=== PATIENT | female | born 1945 | race Caucasian/White ===

== ENCOUNTER 2017-01-28 08:02 | Outpatient (CLI) | payer MEDICARE, OTHER ==
--- NOTE | 2017-01-30 12:51 | DEXA Report ---
DEXA SCAN: 01/28/2017 TECHNIQUE: Dual energy x-ray absorptiometry (DXA) was performed on a Real Time Content system. Regions measured are the AP spine, femoral neck, and, if needed, forearm. COMPARISON: None. In accordance with the International Society for Clinical Densitometry (ISCD) guidelines, data from previous exams may be reanalyzed using current recommendations and techniques. This is done to allow a more accurate basis for comparison with the current study. FINDINGS Data for the lumbar spine is as follows: REGION BMD (g/cm/cm) T-SCORE Z-SCORE L1 0.927 -1.7 0.2 L2 1.007 -1.6 0.3 L3 1.164 -0.3 1.6 L4 1.199 0.0 1.9 TOTAL 1.080 -0.8 1.0 NOTE: All evaluable vertebrae are used for classification. Data for the hip is as follows: REGION BMD (g/cm/cm) T-SCORE Z-SCORE Neck 0.798 -1.7 0.2 TOTAL 0.841 -1.3 0.4 NOTE: The femoral neck or total proximal femur, whichever is lowest, is used for classification. IMPRESSION: THE WHO CLASSIFICATION BASED ON THE INTERNATIONAL REFERENCE STANDARD IS OSTEOPENIA. FRACTURE RISK IS INCREASED. RECOMMENDATION: Patients with diagnosis of osteoporosis or osteopenia should have regular bone mineral density assessment. For those eligible for Medicare, routine testing is allowed once every 2 years. Testing frequency can be increased for patients who have rapidly progressing disease or for those who are receiving medical therapy to restore bone mass. COMMENT: World Health Organization (WHO) definitions for osteoporosis and osteopenia: NORMAL BMD: T-score at -1.0 or higher, fracture risk is low. OSTEOPENIA BMD: T-score between -1.0 and -2.5, fracture risk is increased. OSTEOPOROSIS BMD: T-score at -2.5 or lower, fracture risk high. National Osteoporosis Foundation recommends: 1. Obtain adequate dietary calcium (at least 1200 mg per day) and vitamin D (400 -800 international units per day). 2. Participate, as appropriate, in regular weightbearing and muscle- strengthening exercise. 3. Avoid tobacco use and reduce alcohol and caffeine intake. 4. For more detailed information see the website at www.NOF.org. MTDD
== END 2017-01-28 08:03 | disposition home or self-care (01) ==
LOC: DI 08:02
PROVIDERS: ATTEND Family Medicine
DX: M85.88 Other specified disorders of bone density and structure, other site (principal); Z79.83 Long term (current) use of bisphosphonates
CPT/HCPCS: 77080

== ENCOUNTER 2017-01-29 08:29 | Outpatient (CLI) | payer MEDICARE, OTHER ==
--- NOTE | 2017-01-31 09:45 | Mammography Report ---
DIGITAL BILATERAL SCREENING MAMMOGRAM: 01/29/2017 COMPARISON STUDY: Mammogram 01/04/2016. INDICATION: Screening mammography. TECHNIQUE: Routine CC and MLO projections were obtained of the breasts. FINDINGS: Parenchymal tissue within both breasts is heterogeneously dense, which may lower the sensi tivity of mammography; however, there are no dominant masses, suspicious microcalcifications, or seco ndary signs of malignancy. In comparison to the previous studies, there are no significant changes. ASSESSMENT: NO MAMMOGRAPHIC EVIDENCE OF MALIGNANCY. NO SIGNIFICANT INTERVAL CHANGES. RECOMMENDATION: Screening mammography is recommended annually. BIRADS category 1 - negative. STANDARD QUALIFYING STATEMENTS 1. This examination was reviewed with the aid of Computed-Aided Detection (CAD). 2. A negative or benign imaging report should not delay biopsy if clinically suspicious findings are present. Consider surgical consultation if warranted. More than 5% of cancers are not identified by i maging. 3. Dense breasts may obscure an underlying neoplasm. :9 JOB #: [id number] EXT JOB #:[id number]
== END 2017-01-29 08:30 | disposition home or self-care (01) ==
LOC: DI.S 08:29
PROVIDERS: ATTEND Family Medicine
DX: Z12.31 Encounter for screening mammogram for malignant neoplasm of breast (principal)
CPT/HCPCS: 77067

== ENCOUNTER 2017-10-01 17:42 | Outpatient (CLI) | payer MEDICARE, OTHER ==
--- NOTE | 2017-10-02 08:27 | XRAY Report ---
Procedure Date: 10/01/2017 Accession Number: [id number] / [id number] Procedure: XR - Forearm RT CPT Code: FULL RESULT: EXAM: RIGHT FOREARM RADIOGRAPHY EXAM DATE: 10/01/2017 05:59 PM. CLINICAL HISTORY: Right RADIAL CONTUSION VX FX. TREE LIMB STRUCK ARM. Distal right forearm laceration/contusion. Pain. COMPARISON: None. TECHNIQUE: 2 views. FINDINGS: Bones: No acute fracture or bony lesion. No bony erosions. Joints: Normal alignment. No elbow effusion. Mild degenerative changes of the right wrist. No dislocation. Soft Tissues: No radiopaque foreign bodies. Soft tissue edema. IMPRESSION: 1. No acute osseous abnormalities. RADIA
== END 2017-10-01 17:43 | disposition home or self-care (01) ==
LOC: DI 17:42
PROVIDERS: ATTEND Family Medicine
DX: S50.12XA Contusion of left forearm, initial encounter (principal)

== ENCOUNTER 2019-01-23 09:51 | Outpatient (CLI) | payer MEDICARE, OTHER ==
--- NOTE | 2019-01-23 10:44 | Mammography Report ---
Reason: ROUTINE MAMMO Procedure Date: 01/23/2019 Accession Number: [id number] / [id number] Procedure: WINTER - Screening Mammo w/Andrew CPT Code: FULL RESULT: EXAM: Screening Mammo w/Andrew DATE: 01/23/2019 10:24 AM CLINICAL HISTORY: Screening encounter. TECHNIQUE: (B) - Bilateral CC and MLO views were obtained. Left laterally exaggerated CC views obtained. COMPARISON: 01/29/2017 through 01/11/2010. PARENCHYMAL PATTERN: (A) - The breast(s) demonstrate(s) scattered fibroglandular densities. FINDINGS: A 4 mm right breast upper outer quadrant axillary tail isodense well-circumscribed nodule demonstrates long-term stability, typically benign. There are no suspicious masses, calcifications, or areas of distortion. IMPRESSION: Benign findings. BI-RADS category 2. RECOMMENDATION: (ANNUAL) - Recommend routine annual screening mammography. BI-RADS CATEGORY: (2) - Benign Findings. STANDARD QUALIFYING STATEMENTS: 1. This examination was not reviewed with the aid of Computer-Aided Detection (CAD). 2. A negative or benign imaging report should not preclude biopsy if clinically suspicious findings are present. 3. Dense breasts may obscure an underlying neoplasm. 4. This examination was reviewed with the aid of 3D breast imaging (tomosynthesis).
== END 2019-01-23 09:52 | disposition home or self-care (01) ==
LOC: DI 09:51
DX: Z12.31 Encounter for screening mammogram for malignant neoplasm of breast (principal)
CPT/HCPCS: 77063; 77067

== ENCOUNTER 2019-09-08 11:49 | Outpatient (CLI) | payer MEDICARE, OTHER ==
--- NOTE | 2019-09-08 17:45 | XRAY Report ---
Reason: PAIN IN LEFT FOOT Procedure Date: 09/08/2019 Accession Number: [id number] / [id number] Procedure: XR - Foot 3 View LT CPT Code: Final Report FULL RESULT: PROCEDURE: Foot 3 View LT INDICATIONS: Pain in the left foot, initial injury 4 weeks ago. Possible fracture of the left second digit. TECHNIQUE: 3 views of the foot were acquired. COMPARISON: None FINDINGS: Bones: No dislocations. No suspicious bony lesions. There is a diagonal fracture at the proximal metaphysis of the second proximal phalanx, only slightly displaced and likely subacute, consistent with the clinical history. No additional area of trauma is found. Soft tissues: No tibiotalar joint effusion. Achilles tendon appears normal. IMPRESSION: Minimally displaced diagonal fracture at the base of the second proximal phalanx. No additional injury. Early healing, given the blurring of the fracture margins. Reviewed by: Steve Vega MD on 09/08/2019 1:09 PM PDT Approved by: Steve Vega MD on 09/08/2019 1:09 PM PDT Station ID: [id number]
== END 2019-09-08 11:50 | disposition home or self-care (01) ==
LOC: DI 11:49
PROVIDERS: ATTEND Physician Assistant
DX: S92.512A Displaced fracture of proximal phalanx of left lesser toe(s), initial encounter for closed fracture (principal)

== ENCOUNTER 2019-10-15 08:02 | Day surgery (SDC) | payer MEDICARE, OTHER ==
[2019-10-15] MEDS ORDERED: ONDANSETRON 4 MG/2 ML VIAL IVP STA ×2 (08:17→08:32)
[2019-10-15] MEDS ORDERED: SODIUM CHLORIDE 0.9% 1,000 ML IV STA (08:17)
[2019-10-15] MEDS ORDERED: KETOROLAC 30 MG/ML VIAL IVP STA (08:32)
[2019-10-15 08:38] LABS: BASOPHILS # (AUTO) 0.1 10^3/uL (0.0-0.1); BASOPHILS % (AUTO) 0.4 %; EOSINOPHILS % (AUTO) 0.2 %; LYMPHOCYTES # (AUTO) 0.6 10^3/uL (1.5-3.5); LYMPHOCYTES % (AUTO) 3.7 %; MEAN CORPUSCULAR HEMOGLOBIN 32.7 pg (27.0-31.0); MEAN CORPUSCULAR HGB CONC 33.8 g/dL (32.0-36.0); MEAN CORPUSCULAR VOLUME 96.7 fL (81.0-99.0); MEAN PLATELET VOLUME 10.3 fL (7.9-10.8); MONOCYTES # (AUTO) 1.1 10^3/uL (0.0-1.0); MONOCYTES % (AUTO) 6.6 %; NEUTROPHILS # (AUTO) 14.5 10^3/uL (1.5-6.6); NEUTROPHILS % (AUTO) 88.6 %; PLT - PLATELET COUNT 220 10^3/uL (130-450); RED BLOOD COUNT 3.98 10^6/uL (4.20-5.40); RED CELL DISTRIBUTION WIDTH 12.2 % (12.0-15.0); WHITE BLOOD COUNT 16.3 x10^3/uL (4.8-10.8)
--- NOTE | 2019-10-15 08:39 | ED Physician Documentation ---
History of Present Illness - Stated complaint Stated Complaint: ABD PX, N/V - Chief complaint Chief Complaint: Abd Pain - History obtained from History obtained from: Patient - Additonal information Additional information: Patient comes emergency department complaining of abdominal pain mainly on the right side, and nausea that began 3 days ago. Patient states that she was feeling fine until they ate some crabs at their neighbors had caught the night before. Patient states that 2 or 3 hours later, she began to have a severe shooting, cramping pain on the right side of her abdomen and began to feel severely nauseated. Patient states she vomited everything that she had eaten, and that the nausea continued through the night. Patient has been nauseated every day, and has had intermittent vomiting. She states she had diarrhea at first but that this is resolved. Patient states she has tried to eat a small bowl of Cheerios with banana each morning except this morning. She states that this generally stays down, but that she has dry heaves later. Patient did also have a small piece of chicken and a little sweet potato last night. She states this stayed down but she had dry heaves later in the night. Patient states she thought she was doing a little better yesterday but now she is doing worse again. Patient complains of a sharp, stabbing pain in her right upper and lower quadrants, as well as her epigastric area. She states she has had a full hysterectomy but does not otherwise have an abdominal surgical history. She still has her appendix and gallbladder. Patient denies any fevers or chills. No dysuria. No blood in her urine. No blood in her stool. No other complaints at this time. Patient states she is otherwise healthy. Review of Systems Ten Systems: 10 systems reviewed and negative Constitutional: reports: Reviewed and negative Eyes: reports: Reviewed and negative Ears: reports: Reviewed and negative Nose: reports: Reviewed and negative Throat: reports: Reviewed and negative Cardiac: reports: Reviewed and negative Respiratory: reports: Reviewed and negative GI: reports: Abdominal Pain, Nausea, Vomiting : reports: Reviewed and negative Skin: reports: Reviewed and negative Musculoskeletal: reports: Reviewed and negative Neurologic: reports: Reviewed and negative Psychiatric: reports: Reviewed and negative Endocrine: reports: Reviewed and negative Immunocompromised: reports: Reviewed and negative PD PAST MEDICAL HISTORY - Past Medical History Cardiovascular: None Respiratory: None Endocrine/Autoimmune: None GI: None : None HEENT: None Psych: None Musculoskeletal: None Derm: None - Past Surgical History 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 - Present Medications Home Medications: Ambulatory Orders Medication Instructions Recorded Confirmed Ondansetron Odt [Zofran Odt] 4 mg TL Q6H PRN #10 tablet 10/15/19 oxyCODONE [Roxicodone] 5 mg PO Q4-6H PRN #20 tablet 10/15/19 - Allergies Allergies/Adverse Reactions: Allergies Allergy/AdvReac Type Severity Reaction Status Date / Time codeine Allergy Intermediate Nausea Verified 10/15/19 08:15 Penicillins Allergy Mild Unknown Verified 10/15/19 08:15 PD ED PE NORMAL - Vitals Vital signs reviewed: Yes - General General: Alert and oriented X 3, No acute distress - HEENT HEENT: PERRL - Neck Neck: Supple, no meningeal sign - Cardiac Cardiac: RRR, No murmur - Respiratory Respiratory: Clear bilaterally - Abdomen Abdomen: Soft, Non distended, Other (Patient has moderate tenderness with voluntary guarding over the right side of her abdomen. Moderate tenderness in the epigastric region, as well.) - Derm Derm: Warm and dry - Extremities Extremities: No deformity - Neuro Neuro: Alert and oriented X 3 - Psych Psych: Normal mood, Normal affect Results - Vitals Vitals: Vital Signs - 24 hr 10/15/19 10/15/19 10/15/19 12:00 14:21 14:25 Temperature 36.8 C 36.8 C Heart Rate 71 87 86 Respiratory 16 15 15 Rate Blood Pressure 132/61 H 155/74 H 149/66 H O2 Saturation 98 100 100 10/15/19 10/15/19 10/15/19 14:30 14:35 14:40 Temperature 36.6 C 36.6 C 36.6 C Heart Rate 85 84 82 Respiratory 15 15 19 Rate Blood Pressure 140/76 H 139/65 H 146/75 H O2 Saturation 100 99 100 10/15/19 10/15/19 10/15/19 14:45 14:50 14:55 Temperature 36.6 C 37 C Heart Rate 79 73 72 Respiratory 13 15 16 Rate Blood Pressure 152/78 H 140/70 H 152/74 H O2 Saturation 95 100 98 10/15/19 10/15/19 10/15/19 15:00 15:05 15:15 Temperature 36.8 C 36.1 C L Heart Rate 71 78 75 Respiratory 18 16 15 Rate Blood Pressure 147/69 H 115/51 L 130/59 L O2 Saturation 96 97 94 10/15/19 10/15/19 15:30 15:45 Temperature 36.1 C L Heart Rate 73 76 Respiratory 16 16 Rate Blood Pressure 142/60 H 105/45 L O2 Saturation 99 99 Oxygen O2 Source Room air - Labs Labs: Laboratory Tests 10/15/19 10/15/19 10/15/19 08:25 08:25 08:25 WBC 16.3 H RBC 3.98 L Hgb 13.0 Hct 38.5 MCV 96.7 MCH 32.7 H MCHC 33.8 RDW 12.2 Plt Count 220 MPV 10.3 Neut # (Auto) 14.5 H Lymph # (Auto) 0.6 L [place] # (Auto) 1.1 H Eos # (Auto) 0.0 Baso # (Auto) 0.1 Absolute Nucleated RBC 0.00 Nucleated RBC % 0.0 PT 13.2 H INR 1.2 Sodium 134 L Potassium 3.7 Chloride 97 L Carbon Dioxide 23 Anion Gap 14.0 H BUN 20 Creatinine 0.8 Estimated GFR (MDRD) 70 L Glucose 119 H Calcium 9.3 Total Bilirubin 1.3 H AST 16 ALT 13 Alkaline Phosphatase 44 Total Protein 8.4 H Albumin 4.4 Globulin 4.0 Albumin/Globulin Ratio 1.1 Lipase 32 Urine Color Urine Clarity Urine pH Ur Specific [place] Urine Protein Urine Glucose (UA) Urine Ketones Urine Occult Blood Urine Nitrite Urine Bilirubin Urine Urobilinogen Ur Leukocyte Esterase Urine RBC Urine WBC Ur Squamous Epith Cells Urine Bacteria Urine Mucus Ur Microscopic Review Urine Culture Comments 10/15/19 10:30 WBC RBC Hgb Hct MCV MCH MCHC RDW Plt Count MPV Neut # (Auto) Lymph # (Auto) [place] # (Auto) Eos # (Auto) Baso # (Auto) Absolute Nucleated RBC Nucleated RBC % PT INR Sodium Potassium Chloride Carbon Dioxide Anion Gap BUN Creatinine Estimated GFR (MDRD) Glucose Calcium Total Bilirubin AST ALT Alkaline Phosphatase Total Protein Albumin Globulin Albumin/Globulin Ratio Lipase Urine Color YELLOW Urine Clarity SL. CLOUDY Urine pH 5.5 Ur Specific [place] 1.025 Urine Protein 30 H Urine Glucose (UA) NEGATIVE Urine Ketones >=80 H Urine Occult Blood SMALL H Urine Nitrite NEGATIVE Urine Bilirubin NEGATIVE Urine Urobilinogen 0.2 (NORMAL) Ur Leukocyte Esterase NEGATIVE Urine RBC 0-5 Urine WBC 0-3 Ur Squamous Epith Cells FEW Squamous Urine Bacteria Few Urine Mucus Marked Strands Ur Microscopic Review INDICATED Urine Culture Comments NOT INDICATED - Rads (name of study) CT abd/pelvis Radiology: Final report received, EMP read indepedently, See rad report (acute cholecystitis, with stones in fundus of GB) PD MEDICAL DECISION MAKING - ED course Complexity details: reviewed old records, reviewed results, re-evaluated p atient, considered differential, d/w patient ED course: Patient was treated symptomatically with IV fluids, Zofran, and Toradol, and worked up with labs, urinalysis, and ultimately, CT of the abdomen and pelvis. This did show acute cholecystitis. I discussed the case with Dr. Kerns, who agreed to admit to OR. Pt was given Flagyl and Cipro, as she is PCN allergic. Her pain was doing much better after Toradol. Pt and were informed of the plan, and were agreeable. Departure - Departure Disposition: [facility] DC/[facility] Clinical Impression: Acute cholecystitis Condition: Serious Discharge Date/Time: 10/15/19 12:50
[2019-10-15 08:50] LABS: ALBUMIN 4.4 g/dL (3.2-5.5); ALBUMIN/GLOBULIN RATIO 1.1 (1.0-2.2); BILIRUBIN,TOTAL 1.3 mg/dL (0.2-1.0); CALCIUM 9.3 mg/dL (8.5-10.3); CREATININE 0.8 mg/dL (0.4-1.0); INR 1.2 (0.8-1.2); PT - PROTHROMBIN TIME 13.2 secs (9.9-12.6); TOTAL PROTEIN 8.4 g/dL (6.7-8.2)
[2019-10-15] MEDS ORDERED: IOVERSOL 320 100 ML VIAL IVP ONE (10:14)
[2019-10-15 10:41] LABS: GLUCOSE, URINE (UA) NEGATIVE (NEGATIVE); KETONES,URINE (UA) >=80 mg/dL (NEGATIVE); LEUKOCYTE ESTERASE, URINE NEGATIVE (NEGATIVE); NITRITE,URINE NEGATIVE (NEGATIVE); OCCULT BLOOD,URINE SMALL (NEGATIVE); PH,URINE 5.5 PH (5.0-7.5); PROTEIN,URINE 30 mg/dL (NEGATIVE); UROBILINOGEN,URINE 0.2 (NORMAL) E.U./dL (NORMAL)
[2019-10-15 10:48] LABS: BILIRUBIN,URINE NEGATIVE (NEGATIVE); CLARITY,URINE SL. CLOUDY (CLEAR); ICTOTEST,URINE NEGATIVE
--- NOTE | 2019-10-15 10:51 | CT Report ---
PROCEDURE: Abdomen/Pelvis W INDICATIONS: RLQ abd pain CONTRAST: IV CONTRAST: Optiray 320 ml: 100 PO CONTRAST: *NO PO CONTRAST TECHNIQUE: After the administration of oral and intravenous contrast, 5 mm thick sections acquired from the diap hragms to the symphysis. 5 mm thick coronal and sagittal reformats were acquired. For radiation dos e reduction, the following was used: automated exposure control, adjustment of mA and/or kV accordin g to patient size. COMPARISON: None. FINDINGS: Image quality: Excellent. ABDOMEN: Lung bases: There is mild dependent atelectasis bilaterally. Heart size is borderline enlarged. Solid organs: There is periportal edema demonstrated in the liver. A small nonspecific hypodense foc us is noted in the left hepatic lobe which is too small to characterize but likely represents a cyst. The gallbladder is markedly distended with gallbladder wall thickening and associated pericholecysti c fluid and fat stranding. A few small clustered calcified gallstones are demonstrated in the fundus. No discrete calcified gallstone demonstrated in the gallbladder neck. No biliary ductal dilatation o r discrete calcified common duct stone. No pancreatic duct dilatation or peripancreatic fat stranding . No discrete pancreatic mass visualized. No adrenal nodules. The spleen is normal in size. Kidneys demonstrate no hydronephrosis. Peritoneum and bowel: Bowel loops demonstrate normal wall thickness and caliber. No evidence of albino endicitis. Colonic diverticulosis is present without acute diverticulitis. There is a small amount of free fluid in the subhepatic space. No intraperitoneal free air. Nodes and vessels: No retroperitoneal or mesenteric adenopathy by size criteria. Aorta and inferior vena cava are normal in size. Miscellaneous: No ventral hernias. PELVIS: Genitourinary: Bladder wall thickness is normal. Miscellaneous: No inguinal hernias or adenopathy. Bones: No suspicious bony lesions. No vertebral body compression fractures. IMPRESSION: 1. Marked distention of the gallbladder with wall thickening, pericholecystic fluid and fat stranding , and small calcified gallstones. The findings likely represent acute cholecystitis. Further evaluati on may be obtained with ultrasound if clinically indicated. 2. Periportal edema in the liver is nonspecific but likely reactive. 3. No biliary ductal dilatation or calcified common duct stones. 4. No evidence of appendicitis. Findings discussed with Dr. Martinez on 10/15/2019 at 10:48 AM. Reviewed by: Grady De La Garza MD on 10/15/2019 10:49 AM PDT Approved by: Grady De La Garza MD on 10/15/2019 10:49 AM PDT Station ID: [id number]
[2019-10-15 10:56] LABS: RBC,URINE 0-5 /HPF (0-5); SQUAMOUS EPITHELIAL CELL,UR FEW Squamous (<= Few)
[2019-10-15] MEDS ORDERED: metroNIDAZOLE 500 MG/100 ML 500 MG/100 ML BAG IV ONE (10:56)
[2019-10-15 10:57] LABS: BACTERIA,URINE Few /HPF (None Seen); MUCUS,URINE Marked Strands
[2019-10-15] MEDS ORDERED: CIPROFLOXACIN 400 MG/200 ML 400 MG/200 ML BAG IV STA (10:57)
[2019-10-15] MEDS ORDERED: LIDOCAINE 1%-EPI 1:100000 20 ML MDV SUBQ ONE (12:08)
[2019-10-15] MEDS ORDERED: BUPIVACAINE 0.5% PF 30 ML VIAL SUBQ ONE (12:09)
--- NOTE | 2019-10-15 12:21 | HISTORY & PHYSICAL EXAMINATION ---
HPI - Admitted From Admitted from: ED - History Obtained From History obtained from: Patient, Family Exam limitations: No limitations - History of Present Illness Severity at the worst: reports: Severe Pain Quality: reports: Sharp, Aching Context-Pain started w/: reports: Eating Timing: reports: Abrupt onset Duration: reports: Days: (3) Improved with: reports: Nothing Worsened by: reports: Exertion, Eating, Movement Associated symptoms: reports: Nausea HPI Comment/Other: Acute onset of severe RUQ pain associated with nausea and vomiting 3 days ago. Has been "miserable" and unable to eat since that time. Never had a similar episode. Very active and walks daily. No fever at home. A couple of episodes of diarrhea that have since resolved. 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 denies: Fever, Chills, Weakness - Eyes Eyes: denies: Irritation - Ears, Nose & Throat Ears, Nose & Throat: denies: Tinnitus, Vertigo - Cardiovascular Cariovascular: denies: Irregular heart rate, Palpitations, Chest pain, Edema, Lightheadedness - Respiratory Respiratory: denies: Cough, Sputum production - Gastrointestinal Gastrointestinal: reports: Abdominal pain, Diarrhea, Nausea, Vomiting - Genitourinary Genitourinary: denies: Dysuria, Frequency, Urgency - Musculoskeletal Musculoskeletal: denies: Muscle pain, Back pain - Integumentary Integumentary: denies: Rash, Pruritis - Neurological Neurological: denies: Focal weakness - Hematologic/Lymphatic Hematologic/Lymphatic: denies: Anemia, Bruising - All Other Systems All Other Systems: reports: Reviewed and negative Exam - Vital Signs Reviewed Vital Signs: Yes Vital Signs: Vital Signs x48h Temp Pulse Resp BP Pulse Ox 10/15/19 12:00 71 16 132/61 H 98 10/15/19 10:00 76 16 134/69 H 97 10/15/19 08:11 36.7 C 65 20 147/66 H 99 - Physical Exam General Appearance: positive: Alert, Mild distress Eyes Bilateral: positive: Normal inspection, PERRL, EOMI ENT: positive: ENT inspection nml, Pharynx nml Neck: positive: Nml inspection, Trachea midline Respiratory: positive: Chest non-tender, No respiratory distress, Breath sounds nml Cardiovascular: positive: Regular rate & rhythm, No murmur Peripheral Pulses: positive: 1+ Abdomen: positive: Nml bowel sounds, Tenderness, Guarding Skin: positive: Color nml Extremities: positive: Non-tender Neurologic/Psychiatric: positive: Oriented x3 Results - Lab Results Fish Bones: 10/15/19 08:25 10/15/19 08:25 Other Lab Results: Lab Results x24hrs 10/15/19 10/15/19 10/15/19 Range/Units 10:30 08:25 08:25 WBC (4.8-10.8) x10^3/uL RBC (4.20-5.40) 10^6/uL Hgb (12.0-16.0) g/dL Hct (37.0-47.0) % MCV (81.0-99.0) fL MCH (27.0-31.0) pg MCHC (32.0-36.0) g/dL RDW (12.0-15.0) % Plt Count (130-450) 10^3/uL MPV (7.9-10.8) fL Neut # (Auto) (1.5-6.6) 10^3/uL Lymph # (Auto) (1.5-3.5) 10^3/uL [place] # (Auto) (0.0-1.0) 10^3/uL Eos # (Auto) (0.0-0.7) 10^3/uL Baso # (Auto) (0.0-0.1) 10^3/uL Absolute Nucleated RBC x10^3/uL Nucleated RBC % /100WBC PT 13.2 H (9.9-12.6) secs INR 1.2 (0.8-1.2) Sodium 134 L (135-145) mmol/L Potassium 3.7 (3.5-5.0) mmol/L Chloride 97 L (101-111) mmol/L Carbon Dioxide 23 (21-32) mmol/L Anion Gap 14.0 H (6-13) BUN 20 (6-20) mg/dL Creatinine 0.8 (0.4-1.0) mg/dL Estimated GFR (MDRD) 70 L (>89) Glucose 119 H (70-100) mg/dL Calcium 9.3 (8.5-10.3) mg/dL Total Bilirubin 1.3 H (0.2-1.0) mg/dL AST 16 (10-42) IU/L ALT 13 (10-60) IU/L Alkaline Phosphatase 44 (42-121) IU/L Total Protein 8.4 H (6.7-8.2) g/dL Albumin 4.4 (3.2-5.5) g/dL Globulin 4.0 (2.1-4.2) g/dL Albumin/Globulin Ratio 1.1 (1.0-2.2) Lipase 32 (22-51) U/L Urine Color YELLOW Urine Clarity SL. CLOUDY (CLEAR) Urine pH 5.5 (5.0-7.5) PH Ur Specific [place] 1.025 (1.002-1.030) Urine Protein 30 H (NEGATIVE) mg/dL Urine Glucose (UA) NEGATIVE (NEGATIVE) mg/dL Urine Ketones >=80 H (NEGATIVE) mg/dL Urine Occult Blood SMALL H (NEGATIVE) Urine Nitrite NEGATIVE (NEGATIVE) Urine Bilirubin NEGATIVE (NEGATIVE) Urine Urobilinogen 0.2 (NORMAL) (NORMAL) E.U./dL Ur Leukocyte Esterase NEGATIVE (NEGATIVE) Urine RBC 0-5 (0-5) /HPF Urine WBC 0-3 (0-5) /HPF Ur Squamous Epith Cells FEW Squamous (<= Few) Urine Bacteria Few (None Seen) /HPF Urine Mucus Marked Strands Ur Microscopic Review INDICATED Urine Culture Comments NOT INDICATED 10/15/19 Range/Units 08:25 WBC 16.3 H (4.8-10.8) x10^3/uL RBC 3.98 L (4.20-5.40) 10^6/uL Hgb 13.0 (12.0-16.0) g/dL Hct 38.5 (37.0-47.0) % MCV 96.7 (81.0-99.0) fL MCH 32.7 H (27.0-31.0) pg MCHC 33.8 (32.0-36.0) g/dL RDW 12.2 (12.0-15.0) % Plt Count 220 (130-450) 10^3/uL MPV 10.3 (7.9-10.8) fL Neut # (Auto) 14.5 H (1.5-6.6) 10^3/uL Lymph # (Auto) 0.6 L (1.5-3.5) 10^3/uL [place] # (Auto) 1.1 H (0.0-1.0) 10^3/uL Eos # (Auto) 0.0 (0.0-0.7) 10^3/uL Baso # (Auto) 0.1 (0.0-0.1) 10^3/uL Absolute Nucleated RBC 0.00 x10^3/uL Nucleated RBC % 0.0 /100WBC PT (9.9-12.6) secs INR (0.8-1.2) Sodium (135-145) mmol/L Potassium (3.5-5.0) mmol/L Chloride (101-111) mmol/L Carbon Dioxide (21-32) mmol/L Anion Gap (6-13) BUN (6-20) mg/dL Creatinine (0.4-1.0) mg/dL Estimated GFR (MDRD) (>89) Glucose (70-100) mg/dL Calcium (8.5-10.3) mg/dL Total Bilirubin (0.2-1.0) mg/dL AST (10-42) IU/L ALT (10-60) IU/L Alkaline Phosphatase (42-121) IU/L Total Protein (6.7-8.2) g/dL Albumin (3.2-5.5) g/dL Globulin (2.1-4.2) g/dL Albumin/Globulin Ratio (1.0-2.2) Lipase (22-51) U/L Urine Color Urine Clarity (CLEAR) Urine pH (5.0-7.5) PH Ur Specific [place] (1.002-1.030) Urine Protein (NEGATIVE) mg/dL Urine Glucose (UA) (NEGATIVE) mg/dL Urine Ketones (NEGATIVE) mg/dL Urine Occult Blood (NEGATIVE) Urine Nitrite (NEGATIVE) Urine Bilirubin (NEGATIVE) Urine Urobilinogen (NORMAL) E.U./dL Ur Leukocyte Esterase (NEGATIVE) Urine RBC (0-5) /HPF Urine WBC (0-5) /HPF Ur Squamous Epith Cells (<= Few) Urine Bacteria (None Seen) /HPF Urine Mucus Ur Microscopic Review Urine Culture Comments - Diagnostic Imaging Results Diagnostic Imaging Results Comments: CT reveals a distended and edematous gall bladder with stones consistent with acute cholecystitis Impression/Plan - Problem List Problem List: Acute cholecystitis and cholelithiasis I have recommended immediate cholecystectomy. We have discussed the risks and benefits of the operation and patient has expressed a desire to proceed.
--- NOTE | 2019-10-15 12:24 | ANESTHESIA ---
Pre-Anesthesia VS, & Labs - NPO >8 hours - Is Patient ?: No - Lab Results Fish Bones: 10/15/19 08:25 10/15/19 08:25 <Mike Lagos - Last Filed: 10/15/19 12:22> - Lab Results Fish Bones: 10/15/19 08:25 10/15/19 08:25 <Laurel Roman - Last Filed: 10/15/19 12:25> - Diagnosis Acute cholecystitis (Mike Lagos) - Procedure Lap Jeannie (Mike Lagos) Vital Signs: Temp Pulse Resp BP Pulse Ox 36.7 C 71 16 132/61 H 98 10/15/19 08:11 10/15/19 12:00 10/15/19 12:00 10/15/19 12:00 10/15/19 12:00 Height 5 ft 5 in Weight (kg) 58.967 kg Body Mass Index 21.6 - Lab Results Current Lab Results: Laboratory Tests 10/15/19 08:25: Sodium 134 L, Potassium 3.7, Chloride 97 L, Carbon Dioxide 23, Anion Gap 14.0 H, BUN 20, Creatinine 0.8, Estimated GFR (MDRD) 70 L, Glucose 119 H, Calcium 9.3, Total Bilirubin 1.3 H, AST 16, ALT 13, Alkaline Phosphatase 44, Total Protein 8.4 H, Albumin 4.4, Globulin 4.0, Albumin/Globulin Ratio 1.1, Lipase 32 10/15/19 08:25: PT 13.2 H, INR 1.2 10/15/19 08:25: WBC 16.3 H, RBC 3.98 L, Hgb 13.0, Hct 38.5, MCV 96.7, MCH 32.7 H , MCHC 33.8, RDW 12.2, Plt Count 220, MPV 10.3, Neut # (Auto) 14.5 H, Lymph # (Auto) 0.6 L, Dickinson # (Auto) 1.1 H, Eos # (Auto) 0.0, Baso # (Auto) 0.1, Absolute Nucleated RBC 0.00, Nucleated RBC % 0.0 Home Medications and Allergies <Mike Lagos - Last Filed: 10/15/19 12:22> <Laurel Roman - Last Filed: 10/15/19 12:25> MV and calcium (Mike Lagos) Allergies/Adverse Reactions: Allergies Allergy/AdvReac Type Severity Reaction Status Date / Time codeine Allergy Intermediate Nausea Verified 10/15/19 08:15 Penicillins Allergy Mild Unknown Verified 10/15/19 08:15 Anes History & Medical History - Anesthetic History Anesthesia Complications: reports: No previous complications - Medical History Cardiovascular: reports: None Pulmonary: reports: None Gastrointestinal: reports: None Urinary: reports: None Neuro: reports: None Musculoskeletal: reports: None Endocrine/Autoimmune: reports: None Blood Disorders: reports: None Skin: reports: None Smoking Status: Never smoker Psychosocial: reports: No issues indicated - Surgical History Eyes Ears Nose Throat (EENT): Cataracts Gynecologic: Hysterectomy Orthopedic: Other (Back) <Mike Lagos - Last Filed: 10/15/19 12:22> Exam General: Alert, Oriented x3, Cooperative Dental: WNL Mouth Openin Fingerbreadth Neck Mobility: Normal Mallampati classification: III Thyromental Distance: 4-6 cm Respiratory: Lungs clear, Normal breath sounds, No respiratory distress, No accessory muscle use Cardiovascular: Regular rate, Normal S1, Normal S2, No murmurs Mental/Cognitive Status: Alert/Oriented X3, Normal for patient <Mike Lagos - Last Filed: 10/15/19 12:22> Plan Anesthesia Type: General Consent for Procedure(s) Verified and Reviewed: Yes Code Status: Attempt Resuscitation ASA classification: 1-Healthy patient Is this case an emergency?: Yes <Mike Lagos - Last Filed: 10/15/19 12:22>
[2019-10-15] MEDS ORDERED: BUPIVACAINE 0.5% PF 30 ML VIAL ONE (12:31)
[2019-10-15] MEDS ORDERED: LIDOCAINE 1%-EPI 1:100000 20 ML MDV ONE (12:31)
[2019-10-15] MEDS ORDERED: ONDANSETRON 4 MG/2 ML VIAL IVP ONE (12:53)
[2019-10-15] MEDS ORDERED: GLYCOPYRROLATE 1 MG/5 ML VIAL IVP ONE (12:53)
[2019-10-15] MEDS ORDERED: ePHEDrine 50 MG/ML VIAL IVP ONE (12:53)
[2019-10-15] MEDS ORDERED: NEOSTIGMINE 1 MG/1 ML 10 ML MDV IVP ONE (12:53)
[2019-10-15] MEDS ORDERED: ROCURONIUM 50 MG/5 ML VIAL IVP ONE (12:53)
[2019-10-15] MEDS ORDERED: PROPOFOL 200 MG/20 ML VIAL IVP ONE (12:53)
[2019-10-15] MEDS ORDERED: fentaNYL 250 MCG/5 ML VIAL IVP ONE (12:53)
[2019-10-15] MEDS ORDERED: DEXAMETHASONE 4 MG/ML VIAL IVP ONE (12:53)
[2019-10-15] MEDS ORDERED: LACTATED RINGERS 1,000 ML IV ONE (14:06)
[2019-10-15] MEDS ORDERED: ONDANSETRON 4 MG/2 ML VIAL IVP PRN (14:16)
[2019-10-15] MEDS ORDERED: ACETAMINOPHEN 325 MG TABLET PO PRN (14:16)
[2019-10-15] MEDS ORDERED: oxyCODONE 5 MG TABLET PO PRN (14:16)
[2019-10-15] MEDS ORDERED: IBUPROFEN 600 MG TABLET PO PRN (14:16)
--- NOTE | 2019-10-15 14:16 | OPERATIVE REPORT ---
Operative Report - General Procedure Date: 10/15/19 Planned Procedure: Laparoscopic Cholecystectomy Pre-Op Diagnosis: Acute Cholecystitis Procedure Performed: Lap Jeannie Post Op Diagnosis: Acute Cholecystitis - Procedure Note Primary Surgeon: Luis F Anesthesia Provider: ADRIAN Roman Anesthesia Technique: General ET tube, Local Pathology: Gall bladder in formalin to pathology Estimated Blood Loss (mL): 30 Findings: Acute inflammed and edematous gall bladder Complications: None apparent - Other Other Information/Narrative: After obtaining informed consent the patient is brought to the operating room and placed in the supine position on the operating table. Following successful induction of general endotracheal anesthesia, appropriate padding of all bony prominences, and placement of appropriate monitors, the abdomen was prepped and draped in the standard surgical fashion. A timeout was held per scope protocol. All elements of the surgical safety checklist were followed before, during, and after the procedure. Following infiltration with local anesthetic to create a field block, an incision was created inferior to the umbilicus and carried down through the skin and subcutaneous tissue to reveal the fascia below. 2-0 Vicryl retention sutures were placed on either side of the midline and the abdomen was entered under direct vision using a 15 blade scalpel. A 10 mm blunt Milian balloon trocar was placed in the abdominal cavity and it was insufflated to 15 mmHg pressure. The patient was placed in reverse Trendelenburg position with the left side rotated toward the floor. A second trocar, 5 mm, was placed in the midepigastrium under direct vision and after anesthetization of the surrounding skin.A third trocar, also 5 mm was placed in the right upper quadrant for retraction of the gallbladder and a fourth 1 just medial to that as a working port as well. The gallbladder was examined. It was adherent to the surrounding structures including the omentum and the right colon. These structures were carefully dissected free from the surface of the gallbladder using a mixture of blunt and sharp dissection. The fundus of the gallbladder was then grasped and elevated up over the liver revealing the cholecysto hepatoduodenal ligament. The neck of the gallbladder was retracted laterally and the cystic duct and artery were carefully identified. The common duct was visualized but not skeletonized. The cystic duct was clipped 3 times proximally and once distally and divided, the cystic artery was clipped twice proximally, once distally, and divided. The gallbladder was then liberated from its bed in the liver using cautery. It was placed in an Endo Catch bag and removed via the umbilical port with a camera in the epigastric position. The camera was replaced in the umbilical position and the abdomen was checked for hemostasis. It was irrigated with warm saline solution and aspirated free of all fluid and particulate matter. The trochars were then removed under direct vision and the abdomen desufflated. The umbilical incision was closed with interrupted Vicryl suture and Monocryl was placed in all of the skin incisions. All sponge, needle, and instrument counts were correct at the conclusion of the case. The patient was allowed awaken from anesthesia without difficulty and taken to the postanesthesia care unit in good condition.
[2019-10-15] MEDS ORDERED: SUGAMMADEX 200 MG/2 ML VIAL IVP ONE (14:23)
[2019-10-15] MEDS ORDERED: ACETAMINOPHEN 1,000 MG/100 ML 100 ML IV ONE (14:32)
[2019-10-15] MEDS ORDERED: oxyCODONE 5 MG TABLET ONE (15:25)
[2019-10-15 15:47] VITALS: BP 105/45
== END 2019-10-15 11:56 | disposition home or self-care (01) ==
LOC: ED 08:02 → SDS 11:55
PROVIDERS: ATTEND Surgery
PROC: 0FT44ZZ Resection of Gallbladder, Percutaneous Endoscopic Approach (ICD-10-PCS; principal; 2019-10-15 11:30)
DX: K80.00 Calculus of gallbladder with acute cholecystitis without obstruction (principal)
CPT/HCPCS: 36415; 47562; 74177; 80053; 81001; 83690; 85025; 85610; 96361; 96374; 96375; 99284; 99285; A9270; J0131; J3010; J7120; Q9967; 81003; 87086